=== PATIENT | male | born 1985 | race Caucasian/White ===

== ENCOUNTER 2021-06-12 07:14 | Emergency (ER) | payer MEDICAID ==
[~2021-06-12] VITALS: Ht 165.1 cm; Wt 77.3 kg
[2021-06-12 07:31] VITALS: BP 88/40
[2021-06-12] MEDS ORDERED: BACITRACIN 0.9 GM PACKET OINTMENT TP ONE (08:00)
== END 2021-06-12 08:41 | disposition home or self-care (01) ==
LOC: EMS 07:16
DX: I86.8 Varicose veins of other specified sites (principal)
CPT/HCPCS: 99282; Z7502; Z7610